=== PATIENT | female | born 1960 | race African-American/Black ===

== ENCOUNTER 2022-01-23 14:29 | Emergency (ER) | payer OTHER ==
[2022-01-23 14:53] VITALS: RESP 18; TEMP 98; BMI 42.5
[2022-01-23] MEDS ORDERED: ACETAMINOPHEN 325 MG TABLET (FP) PO ONE (17:43)
[2022-01-23] MEDS ORDERED: ACETAMINOPHEN 325 MG TABLET (FP) ONE (17:53)
[2022-01-23] MEDS ORDERED: DIPHTH,PERTUSS(ACELL),TET 0.5 ML DISP.SYRIN IM ONE ×2 (18:46→19:29)
[2022-01-23] MEDS ORDERED: IBUPROFEN 600 MG TABLET (FP) PO ONE ×2 (20:29→20:39)
[2022-01-23 20:47] VITALS: BP 162/80; PULSE 86
== END 2022-01-23 20:47 | disposition home or self-care (01) ==
LOC: JER 14:29
PROC: 3E0234Z Introduction of Serum, Toxoid and Vaccine into Muscle, Percutaneous Approach (ICD-10-PCS; principal; 2022-01-23)
DX: M25.461 Effusion, right knee (principal); W19.XXXA Unspecified fall, initial encounter
CPT/HCPCS: 70450-TC; 70486-TC; 71250-TC; 72125-TC; 72170-TC-FY; 73562-TC-RT-FY; 73610-TC-LT-FY; 73630-TC-LT; 90715; 99285-25

== ENCOUNTER 2022-08-28 19:16 | Emergency (ER) | payer OTHER ==
[2022-08-28 19:24] VITALS: BP 167/84; PULSE 92; RESP 19; TEMP 98.6; BMI 42.5
[2022-08-28] MEDS ORDERED: KETOROLAC TROMETHAMINE 30 MG/1 ML VIAL IM ONE (20:21)
[2022-08-28] MEDS ORDERED: METHOCARBAMOL 500 MG TABLET PO ONE (20:21)
[2022-08-28] MEDS ORDERED: METHOCARBAMOL 500 MG TABLET ONE (20:22)
[2022-08-28] MEDS ORDERED: KETOROLAC TROMETHAMINE 30 MG/1 ML VIAL ONE (20:23)
== END 2022-08-28 20:56 | disposition home or self-care (01) ==
LOC: JERFT 19:16
PROC: 3E0233Z Introduction of Anti-inflammatory into Muscle, Percutaneous Approach (ICD-10-PCS; principal; 2022-08-28)
DX: M54.2 Cervicalgia (principal); V49.50XA Passenger injured in collision with unspecified motor vehicles in traffic accident, initial encounter
CPT/HCPCS: 72040-TC; 99284-25

== ENCOUNTER 2022-12-11 05:07 | Day surgery (SDC) | payer OTHER ==
[2022-12-04 13:29] VITALS: BMI 43.2
[2022-12-11 08:42] VITALS: TEMP 98.7
[2022-12-11 09:17] VITALS: BP 129/79; PULSE 78; RESP 18
== END 2022-12-11 09:41 | disposition home or self-care (01) ==
LOC: JASU-ENDO 05:07
PROVIDERS: ATTEND Internal Medicine Gastroenterology
PROC: 0DJD8ZZ Inspection of Lower Intestinal Tract, Via Natural or Artificial Opening Endoscopic (ICD-10-PCS; principal; 2022-12-11 08:00)
DX: Z12.11 Encounter for screening for malignant neoplasm of colon (principal); K57.30 Diverticulosis of large intestine without perforation or abscess without bleeding; K64.8 Other hemorrhoids; I10 Essential (primary) hypertension; E11.9 Type 2 diabetes mellitus without complications; Z79.84 Long term (current) use of oral hypoglycemic drugs
CPT/HCPCS: 82962